=== PATIENT | female | born 1975 | race Caucasian/White ===

== ENCOUNTER 2018-09-22 12:50 | Emergency (ER) | payer BC, OTHER ==
[2018-09-22 13:43] VITALS: BP 136/73
--- NOTE | 2018-09-22 14:47 | UC ---
Lower Extremity/Ankle HPI - HPI Summary HPI Summary: Pt presents with c/o right foot pain and swelling after dropping heavy metal tools on foot at work jut prior to arrival at clinic - History of Current Complaint Chief Complaint: UCLowerExtremity Stated Complaint: WC RIGHT FOOT INJURY Time Seen by Provider: 09/22/18 14:12 Hx Obtained From: Patient Hx Last Menstrual Period: CURRENT ?: No Onset/Duration: Sudden Onset, Still Present Severity Initially: Severe Severity Currently: Moderate Pain Intensity: 8 Aggravating Factor(s): Standing, Ambulation Alleviating Factor(s): Rest, Ice Able to Bear Weight: Yes - painful Related History: Occupational Injury - Risk Factors Gout Risk Factors: Age Over 40 DVT Risk Factors: Negative Septic Arthritis Risk Factor: Negative - Allergies/Home Medications Allergies/Adverse Reactions: Allergies Allergy/AdvReac Type Severity Reaction Status Date / Time aspirin Allergy See Comment Verified 09/22/18 13:36 Home Medications: Home Medications Ferrous Gluconate [Iron 27] 1 dose PO TID 09/22/18 [History Confirmed 09/22/18] Ibuprofen TAB* [Motrin TAB* 800 MG] 800 mg PO Q6H PRN 09/22/18 [History Confirmed 09/22/18] LORazepam TAB(*) [Ativan 0.5 MG TAB (*)] 0.5 mg PO BEDTIME PRN 09/22/18 [ History Confirmed 09/22/18] Meclizine TAB* [Antivert 12.5 TAB*] 12.5 mg PO TID PRN 09/22/18 [History Confirmed 09/22/18] Omeprazole CAP (NF) [Prilosec CAP* 20 MG] 20 mg PO DAILY 09/22/18 [History Confirmed 09/22/18] PARoxetine HCL TAB* [Paxil TAB*] 40 mg PO DAILY 09/22/18 [History Confirmed ] buPROPion TAB* [Wellbutrin TAB*] 100 mg PO DAILY 09/22/18 [History Confirmed ] PMH/Surg Hx/FS Hx/Imm Hx Previously Healthy: Yes Psychological History: Anxiety - Surgical History Surgical History: Yes Surgery Procedure, Year, and Place: TUBAL. OVARIAN CYST REMOVAL - Family History Known Family History: Positive: Cardiac Disease - Social History Occupation: Employed Full-time Lives: With Family Alcohol Use: Occasionally Substance Use Type: None Smoking Status (MU): Never Smoked Tobacco Have You Smoked in the Last Year: No Review of Systems All Other Systems Reviewed And Are Negative: Yes Constitutional: Positive: Negative Skin: Positive: Bruising - top of right mid foot Eyes: Positive: Negative ENT: Positive: Negative Respiratory: Positive: Negative Cardiovascular: Positive: Negative Gastrointestinal: Positive: Negative Genitourinary: Positive: Negative Motor: Positive: Decreased ROM - right foot Neurovascular: Positive: Negative Musculoskeletal: Positive: Arthralgia, Decreased ROM, Edema, Myalgia Neurological: Positive: Negative Psychological: Positive: Negative Is Patient Immunocompromised?: No Physical Exam Triage Information Reviewed: Yes Appearance: Well-Appearing Vital Signs: Initial Vital Signs Temp 99.0 F 09/22/18 13:38 Pulse 79 09/22/18 13:38 Resp 15 09/22/18 13:38 BP 136/73 09/22/18 13:38 Pulse Ox 100 09/22/18 13:38 Vital Signs Reviewed: Yes Eye Exam: Normal ENT Exam: Normal ENT: Positive: Hearing grossly normal Neck exam: Normal Respiratory: Positive: No respiratory distress Musculoskeletal: Positive: ROM Limited @ - right foot, Edema @ - right foot, midfoot Neurological Exam: Normal Psychological Exam: Normal Skin Exam: Other - bruising right mid anterior foot Diagnostics - Radiology No standard instances Radiology Interpretation Completed By: Radiologist - IMPRESSION: SOFT TISSUE SWELLING, NO FRACTURE IS SEEN. IF THE PATIENT'S SYMPTOMS PERSIST RECOMMEND FOLLOW-UP IMAGING. Lower Extremity Course/Dx - Differential Dx/Diagnosis Differential Diagnosis/HQI/PQRI: Contusion, Fracture (Closed) Provider Diagnosis: Contusion of right foot Discharge - Sign-Out/Discharge Documenting (check all that apply): Patient Departure All imaging exams completed and their final reports reviewed: Yes - Discharge Plan Condition: Stable Disposition: HOME Patient Education Materials: Foot Contusion (ED), R.I.C.E. Treatment (ED) Forms: *Work Release Referrals: Roland Apodaca MD [Medical Doctor] - If Needed Lin Hollingsworth [Primary Care Provider] - If Needed - Billing Disposition and Condition Condition: STABLE Disposition: Home - Attestation Statements Provider Attestation: Pt not seen by me I was available for consult
== END 2018-09-22 15:05 | disposition home or self-care (01) ==
LOC: UCCORT 12:50
DX: S90.31XA Contusion of right foot, initial encounter (principal); W22.8XXA Striking against or struck by other objects, initial encounter; Y93.89 Activity, other specified; Y92.89 Other specified places as the place of occurrence of the external cause; Y99.0 Civilian activity done for income or pay; F41.9 Anxiety disorder, unspecified
CPT/HCPCS: 99212; G0463

== ENCOUNTER 2019-04-07 11:49 | Emergency (ER) | payer BC ==
[2019-04-07 13:32] VITALS: BP 142/71
--- NOTE | 2019-04-07 13:32 | UC ---
Throat Pain/Nasal Mickey HPI - HPI Summary HPI Summary: 43 y/o female presents to the urgent care c/o dry cough and sore throat for the past 6 days. Symptoms worsen 2 days ago w/ fever, body aches, B/L ear pain radiating to her neck. Fever of 102F yesterday associated w/ mild OLIVAS. She has taken Nyquill and Dayquill PO to alleviate symptoms. Unable to sleep well last night due to cough. Pt denies rash, dizziness, SOB, chest pain, abdominal pain , N/V/D. 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 - History of Current Complaint Stated Complaint: COUGH/EARACHE/BODY ACHES Time Seen by Provider: 04/07/19 13:22 Hx Obtained From: Patient Hx Last Menstrual Period: 03/18/19 ?: No Onset/Duration: Gradual Onset, Lasting Days - 6 days, Still Present, Worse Since - 2 days w/ fever Severity: Moderate Pain Intensity: 5 - sore throat Pain Scale Used: 0-10 Numeric Cough: Nonproductive Associated Signs & Symptoms: Positive: Sinus Discomfort, Nasal Discharge - clear , Fever - 102F Max. Negative: Dysphagia, Wheezing, Hoarseness - Epiglottits Risk Factors Epiglottis Risk Factors: Negative - Allergies/Home Medications Allergies/Adverse Reactions: Allergies Allergy/AdvReac Type Severity Reaction Status Date / Time aspirin Allergy See Comment Verified 04/07/19 13:32 PMH/Surg Hx/FS Hx/Imm Hx Previously Healthy: Yes Endocrine History: Diabetes - Pre-DM Cardiovascular History: Hypertension - Surgical History Surgical History: Yes Surgery Procedure, Year, and Place: TUBAL. OVARIAN CYST REMOVAL - Family History Known Family History: Positive: Cardiac Disease, Hypertension - Social History Occupation: Employed Full-time Lives: With Family Alcohol Use: Occasionally Substance Use Type: None Smoking Status (MU): Never Smoked Tobacco Have You Smoked in the Last Year: No Review of Systems All Other Systems Reviewed And Are Negative: Yes Constitutional: Positive: Fever, Chills, Fatigue, Other - body aches Skin: Positive: Negative Eyes: Positive: Negative ENT: Positive: Sore Throat, Ear Ache - B/L ear pain, Nasal Discharge - clear, Sinus Congestion Respiratory: Positive: Cough - dry Cardiovascular: Positive: Negative Gastrointestinal: Positive: Negative Genitourinary: Positive: Negative Motor: Positive: Negative Neurovascular: Positive: Negative Musculoskeletal: Positive: Myalgia Neurological: Positive: Headache Psychological: Positive: Negative Is Patient Immunocompromised?: No Physical Exam - Summary Physical Exam Summary: VITAL SIGNS: Reviewed. GENERAL: Patient is a well developed and nourished obese female who is sitting comfortably in the examining table. Patient is not in any acute respiratory distress. HEAD AND FACE: No signs of trauma. No ecchymosis, hematomas or skull depressions. No sinus tenderness. EYES: PERRLA, EOMI x 2, No injected conjunctiva, no nystagmus. No photophobia. EARS: Hearing grossly intact. Ear canals and tympanic membranes are within normal limits. MOUTH: Positive pharynx with erythema, exudates, palatal petechiae. B/L tonsillar enlargement with exudate. Uvula in midline. NECK: Supple, trachea is midline, Positive anterior cervical lymphadenopathy, no JVD, no carotid bruit, no c-spine tenderness, neck with full ROM. No meningeal signs, no Kernig's or brudzinskis signs. CHEST: Symmetric, no tenderness at palpation LUNGS: Clear to auscultation bilaterally. No wheezing or crackles. CVS: Regular rate and rhythm, S1 and S2 present, no murmurs or gallops appreciated. ABDOMEN: Soft, non-tender. No signs of distention. No rebound no guarding, and no masses palpated. Bowel sounds are normal. EXTREMITIES: FROM in all major joints, no edema, no cyanosis or clubbing. NEURO: Alert and oriented x 3. No acute neurological deficits. Speech is normal and follows commands. SKIN: Dry and warm Triage Information Reviewed: Yes Vital Signs: Initial Vital Signs Temp 99 F 04/07/19 13:24 Pulse 103 04/07/19 13:24 Resp 20 04/07/19 13:24 BP 142/71 04/07/19 13:24 Pulse Ox 100 04/07/19 13:24 Throat Pain/Nasal Course/Dx - Course Course Of Treatment: 43 y/o female presents to the urgent care c/o dry cough and sore throat for the past 6 days. Symptoms worsen 2 days ago w/ fever, body aches, B/L ear pain radiating to her neck. Fever of 102F yesterday associated w/ mild OLIVAS. She has taken Nyquill and Dayquill PO to alleviate symptoms. Unable to sleep well last night due to cough. Pt denies rash, dizziness, SOB, chest pain, abdominal pain , N/V/D. 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 Hx obtained. Pt is hemodynamically stable, A&OX3, VS: WNL Rapid strep ordered: result: positive. Strep pharyngitis. Rx Amoxicillin PO and Ibuprofen PO for pain and swelling. PT Advised on hand washing to avoid spreading. Also advised to rest, eat well and avoid strenuous exercise. Pt's BP is elevated today advised to decrease salt in diet, monitor BP and f/u with PCP for further management.If symptoms do not improve or worsen advised to return to the urgent care or f/u with her PCP for further evaluation and treatment. Pt understood and agreed w/ plan of care. - Differential Dx/Diagnosis Differential Diagnosis/HQI/PQRI: Influenza, Laryngitis, Mononucleosis, Pharyngitis, Tonsillitis, URI Provider Diagnosis: Strep pharyngitis, Elevated BP without diagnosis of hypertension Discharge ED - Sign-Out/Discharge Documenting (check all that apply): Patient Departure - d/c home All imaging exams completed and their final reports reviewed: No Studies - Discharge Plan Condition: Stable Disposition: HOME Prescriptions: Amoxicillin PO (*) [Amoxicillin 500 MG CAP*] 500 mg PO Q12H #20 cap Patient Education Materials: Strep Throat (ED) Forms: *Work Release Referrals: Lin Hollingsworth [Primary Care Provider] - 3 Days Additional Instructions: 1- Please take the full course of the antibiotic to avoid resistance.Take yogurts w/ probiotics or Culturelle to protect your GI system 2-Please take ibuprofen PO q6-8hrs prn as instructed after meals to alleviate pain and swelling. Increase fluid intake, eat well, rest and avoid strenuous exercise 3-If symptoms do not improve or worsen please return to the urgent care or f/u with your PCP for further evaluation and treatment. 4- Please change your toothbrush 5- Your BP is elevated today advised to decrease salt in diet, monitor BP and f/ u with PCP for further management. - Billing Disposition and Condition Condition: STABLE Disposition: Home - Attestation Statements Provider Attestation: I was available for consult. This patient was seen by the ZURDO. The patient was not presented to, seen by, or examined by me. -Kathleen
[2019-04-07 13:53] LABS: Influenza A Molecular Negative (Negative); Influenza B Molecular Negative (Negative)
== END 2019-04-07 14:08 | disposition home or self-care (01) ==
LOC: UCCORT 11:49
DX: J02.0 Streptococcal pharyngitis (principal); R03.0 Elevated blood-pressure reading, without diagnosis of hypertension; I10 Essential (primary) hypertension; Z88.6 Allergy status to analgesic agent; H92.03 Otalgia, bilateral; J34.89 Other specified disorders of nose and nasal sinuses
CPT/HCPCS: 87651; 99212; G0463